=== PATIENT | female | born 1930 | race Caucasian/White ===

== ENCOUNTER 2018-12-03 01:02 | Emergency (ER) | payer MEDICARE ==
[2018-12-03] MEDS ORDERED: Bacitracin Zinc 1 Packet ONE (02:07)
== END 2018-12-03 02:22 | disposition home or self-care (01) ==
LOC: ERS 01:02
DX: S01.01XA Laceration without foreign body of scalp, initial encounter (principal); S01.81XA Laceration without foreign body of other part of head, initial encounter; Z79.899 Other long term (current) drug therapy; W19.XXXA Unspecified fall, initial encounter; Y92.129 Unspecified place in nursing home as the place of occurrence of the external cause
CPT/HCPCS: 93005